=== PATIENT | female | born 1965 ===

== ENCOUNTER 2016-08-24 15:39 | Inpatient (IN) | payer BC ==
--- NOTE | 2016-08-24 17:06 | ED PDOC ---
Lower Extremity Pain/Injury Time Seen by Provider: 08/24/16 16:04 Chief Complaint (Nursing): Lower Extremity Problem/Injury Chief Complaint (Provider): Fall Type Injury History Per: Patient History/Exam Limitations: no limitations Current Symptoms Are (Timing): Still Present Additional Complaint(s): Star Díaz, a 51 year old female, presents to the ED complaining of back pain and foot pain. The patient states that she was at home packing away dishes in the top shelf when she slipped and fell on her buttocks. She states that she took advil for the pain and that offered her mild relief. Denies dizziness, chest pain. Past Medical History Reviewed: Historical Data, Nursing Documentation, Vital Signs Vital Signs: Last Vital Signs Temp 98.6 F 08/24/16 15:55 Pulse 66 08/24/16 15:55 Resp 18 08/24/16 15:55 BP 149/82 08/24/16 15:55 Pulse Ox 100 08/24/16 15:55 - Medical History PMH: Back Problems - Surgical History Surgical History: No Surg Hx - Family History Family History: States: Unknown Family Hx - Immunization History Hx Tetanus Toxoid Vaccination: No Hx Influenza Vaccination: No Hx Pneumococcal Vaccination: No - Home Medications Home Medications: Ambulatory Orders Medication Instructions Recorded Ciprofloxacin/Ciprofloxa HCl 500 mg PO BID #14 tab 03/10/15 [Ciprofloxacin] Cyclobenzaprine [Flexeril] 5 mg PO Q8H #20 tab 03/10/15 Nabumetone [Relafen] 500 mg PO BID #20 tab 03/10/15 - Allergies Allergies/Adverse Reactions: Allergies Allergy/AdvReac Type Severity Reaction Status Date / Time No Known Allergies Allergy Verified 03/10/15 12:11 Review of Systems Cardiovascular: Negative for: Chest Pain Musculoskeletal: Positive for: Back Pain, Foot Pain Neurological: Negative for: Dizziness Physical Exam - Reviewed Nursing Documentation Reviewed: Yes Vital Signs Reviewed: Yes - Physical Exam Appears: Positive for: Non-toxic, No Acute Distress Head Exam: Positive for: ATRAUMATIC, NORMAL INSPECTION, NORMOCEPHALIC Skin: Positive for: Normal Color, Warm, Dry Eye Exam: Positive for: Normal appearance, EOMI, PERRL ENT: Positive for: Normal ENT Inspection Neck: Positive for: Normal, Painless ROM, Supple Cardiovascular/Chest: Positive for: Regular Rate, Rhythm, Chest Non Tender. Negative for: Tachycardia Respiratory: Positive for: Normal Breath Sounds. Negative for: Wheezing, Respiratory Distress Gastrointestinal/Abdominal: Positive for: Normal Exam, Bowel Sounds, Soft. Negative for: Tenderness Back: Positive for: Normal Inspection Extremity: Positive for: Normal ROM, Tenderness (Tenderness to mid foot). Negative for: Pedal Edema, Deformity, Swelling Neurologic/Psych: Positive for: Alert, Oriented, Gait - Laboratory Results Result Diagrams: 08/24/16 19:40 08/24/16 19:40 - ECG O2 Sat by Pulse Oximetry: 100 (RA) Pulse Ox Interpretation: Normal Medical Decision Making Medical Decision Makin Initial Impression: 51 year old female presenting with back and foot pain Initial Plan: * Ultram 50mg PO * RAD LS Spine AP/LAT * Reevaluation 1805 - Podiatry paged. Foot: (+) 5th metatarsal fx LS: No acute fracture, height and space maintained. Podiatry consult completed. PT to OR approx 9pm. Discussed admission with Dr. Herring. PT will be evaluated for surgery by anesthesiology. Scribe Attestation Documented by Kathy Mireles acting as a scribe for Lay Graf PA-C. Scribe Attestation All medical record entries made by the Scribe were at my direction and personally dictated by me. I have reviewed the chart and agree that the record accurately reflects my personal performance of the history, physical exam, medical decision making, and the department course for this patient. I have also personally directed, reviewed, and agree with the discharge instructions and disposition. Disposition - Clinical Impression Clinical Impression: Fracture of 5th metatarsal, Fall, Back pain - Patient ED Disposition Is Patient to be Admitted: No - Disposition Disposition Time: 19:40 Condition: STABLE
--- NOTE | 2016-08-24 18:18 | RAD ---
PROCEDURE: Left Foot Radiographs. HISTORY: mi foot pain, s/p fall COMPARISON: None. FINDINGS: BONES: Obliques fracture distal aspect left 5th metatarsal. The fracture does not extend to the articular surface. Anatomic alignment of major fracture fragments. JOINTS: Normal. SOFT TISSUES: Soft tissue swelling attests to the acuity of the fracture. OTHER FINDINGS: None. IMPRESSION: Acute fracture distal left 5th metatarsal.
--- NOTE | 2016-08-24 18:21 | RAD ---
PROCEDURE: Radiographs of the Lumbar Spine. HISTORY: back pain s/p fall COMPARISON: No prior. FINDINGS: BONES: Normal alignment. No listhesis. No fracture. DISC SPACES: Unremarkable. OTHER FINDINGS: None. IMPRESSION: No acute findings related to/accounting for the clinical presentation.
--- NOTE | 2016-08-24 19:28 | CP.PCM.CON ---
History of Present Illness - History of Present Illness History of Present Illness: 51 y/o female with no PMHx presents to ED for left foot pain. Pt states that she was trying to get something from the top shelf at home and fell down. Pt states that injury occured sometimes in the afternoon. Pt informs that she has a lot of pain in her left foot since then. Pt states that she has not had anything to eat or drink since 12 pm this afternoon. Pt denies of any recent F/N /V/C/SOB today. PMHx: denies PSHx: Panniculectomy Abdominoplasty SHx: denies of smoking, EtOH use and illicit drug usage Allergies: N.K.D.A Review of Systems - Constitutional Constitutional: As Per HPI Past Patient History - Past Social History Smoking Status: Never Smoked - PSYCHIATRIC Hx Substance Use: Yes - ANESTHESIA Hx Anesthesia: Yes Hx Anesthesia Reactions: No Meds Allergies/Adverse Reactions: Allergies Allergy/AdvReac Type Severity Reaction Status Date / Time No Known Allergies Allergy Verified 03/10/15 12:11 Physical Exam - Constitutional Appears: Well, Non-toxic, No Acute Distress - Extremities Exam Additional comments: VASC: DP/PT pulses are palpable 2/4 b/l, CORPORATE COMMUNICATIONS ASSOCIATE: < 3 sec to all digits, TG: warm to cool from proximal to distal, no pitting or non-pitting edema noted DERM: No inter-digital maceration, mild erythema noted on the dorsum of the left foot, no open lesions, no clinical suspicion of infection noted NEURO: Protective sensation grossly intact ORTHO: Pain on active ROM in all 4 compartments on left foot, MMT on left foot: 4/5 on dorsiflexion, plantarflexion, and inversion. 2/5 on eversion secondary to patient guarding on the side - Neurological Exam Neurological exam: Alert, Oriented x3 - Psychiatric Exam Psychiatric exam: Normal Affect, Normal Mood Results - Vital Signs Recent Vital Signs: Last Vital Signs Temp 98.6 F 08/24/16 15:55 Pulse 66 08/24/16 15:55 Resp 18 08/24/16 15:55 BP 149/82 08/24/16 15:55 Pulse Ox 100 08/24/16 18:05 Assessment & Plan - Assessment and Plan (Free Text) Assessment: 51 y/o female seen at bedside in ED for displaced oblique 5th metatarsal shaft fracture on the left foot Plan: Pt evaluated and chart reviewed Pt discussed in details with attending Dr. Bland Labs and vitals reviewed (afebrile) x-rays of the left foot taken/reviewed: -oblique radiolucency noted at midshaft level of the 5th metatarsal with mild displacement indicating a fracture Pt placed in barboza compression dressing on the left foot Pt to remain NWB on the left foot Pt educated of the possible treatment options: Pt agreed to have surgery Risks and benefits of procedure discussed with patient patient demonstrates verbal understanding NPO status confirmed by patient CXR, EKG, PT/INR, PTT, CBC, BMP ordered Pt to go to OR tonight for ORIF of left 5th metatarsal fracture Medical clearance to be obtained from on-call anesthesiologist Dr. Mauro Pt educated to stay overnight at the hospital for observation post-op Podiatry to follow this patient while in-house Thank you for the podiatry consult - Date & Time Date: 08/24/16 Time: 19:42
[2016-08-24] MEDS ORDERED: Lidocaine 1% Inj (20ml) IJ ONE ×2 (19:44→22:00)
[2016-08-24] MEDS ORDERED: ceFAZolin 1 GM in Sodium Chloride 0.9% 100 ML IVPB ONE (19:44)
[2016-08-24] MEDS ORDERED: Bupivacaine 0.5% 50 ML IJ ONE (19:44)
[2016-08-24] MEDS ORDERED: Sodium Chloride 0.9% 1,000 ML IV SCH ×2 (19:45→23:45)
[2016-08-24 19:50] LABS: HEMOGLOBIN 11.7 g/dL (12.0-16.0); MEAN CELL VOLUME 94.4 fl (81.0-99.0); MEAN CORPUSCULAR HGB CONC 32.9 g/dL (33.0-37.0); RBC 3.78 Mil/uL (3.80-5.20); RED CELL DISTRIBUTION WIDTH 13.2 % (11.5-14.5); WHITE BLOOD COUNT 5.4 K/uL (4.8-10.8)
[2016-08-24 20:08] LABS: ALB/GLOB RATIO 1.3 (1.0-2.1); ALBUMIN 4.3 g/dL (3.5-5.0); ALT/SGPT 33 U/L (9-52); AST/SGOT 29 U/L (14-36); BLOOD UREA NITROGEN 15 mg/dl (7-17); GFR AFRICAN-AMERICAN > 60; GFR NON-AFRICAN AMERICAN > 60
[2016-08-24 20:15] LABS: PARTIAL THROMBOPLASTIN TIME 29.8 Seconds (25.6-37.1); PROTHROMBIN TIME 11.1 Seconds (9.8-13.1)
[2016-08-24] MEDS ORDERED: Propofol 10 mg/ml Inj (20 ML) ONE ×3 (21:41→22:37)
[2016-08-24] MEDS ORDERED: Lidocaine Hydrochloride 5 ML INJ ONE (21:41)
[2016-08-24] MEDS ORDERED: Midazolam 2 MG/2 ML VIAL ONE (21:41)
[2016-08-24] MEDS ORDERED: Bupivacaine 0.5% Inj(30mL) ONE (21:50)
[2016-08-24] MEDS ORDERED: Sodium Chloride 0.9% 1,000 ML IV ONE (21:54)
[2016-08-24] MEDS ORDERED: Bupivacaine 0.5% Inj(30mL) IJ ONE (22:00)
[2016-08-24] MEDS ORDERED: Oxycodone/Acetaminophen 5/325 mg Tab PO PRN ×2 (22:24)
[2016-08-24] MEDS ORDERED: Liquid Adhesive TOP ONE (23:06)
[2016-08-24] MEDS ORDERED: HYDROmorphone 0.5 mg/0.5 ml ISec IVP PRN (23:33)
--- NOTE | 2016-08-24 23:33 | PCM.SURG1 ---
Surgeon's Initial Post Op Note - Surgeon's Notes Surgeon: Dr. Bland Batch Freezer: Dr. Moy PGY3, Dr. Dc PGY3, Dr. Collado PGY1 Type of Anesthesia: IV Sedation Pre-Operative Diagnosis: Left foot 5th metatarsal fracture Operative Findings: See operative note. materials: 2.0 screws = 8mm x2, 10mm x2 , 12mm; 247.612 plate, 3-0 vicryl, 4-0 vicryl, 5-0 prolene Post-Operative Diagnosis: Same Operation Performed: Left foot 5th metatarsal fracture ORIF Specimen/Specimens Removed: none Estimated Blood Loss: EBL {In ML}: 2 Blood Products Given: N/A Drains Used: No Drains Post-Op Condition: Good Date of Surgery/Procedure: 08/24/16 Time of Surgery/Procedure: 22:00
--- NOTE | 2016-08-24 23:43 | CP.PCM.HP ---
Past Patient History - Past Medical History & Family History Past Medical History?: Yes - Past Social History Smoking Status: Never Smoked - MUSCULOSKELETAL/RHEUMATOLOGICAL Hx Back Pain: Yes - PSYCHIATRIC Hx Substance Use: Yes - ANESTHESIA Hx Anesthesia: Yes Hx Anesthesia Reactions: No Meds Allergies/Adverse Reactions: Allergies Allergy/AdvReac Type Severity Reaction Status Date / Time No Known Allergies Allergy Verified 03/10/15 12:11 Results - Vital Signs Recent Vital Signs: Last Vital Signs Temp 98.6 F 08/24/16 15:55 Pulse 66 08/24/16 15:55 Resp 18 08/24/16 15:55 BP 149/82 08/24/16 15:55 Pulse Ox 100 08/24/16 21:35 - Labs Result Diagrams: 08/24/16 19:40 08/24/16 19:40 Labs: Laboratory Results - last 24 hr 08/24/16 08/24/16 08/24/16 19:40 19:40 19:40 WBC 5.4 RBC 3.78 L Hgb 11.7 L Hct 35.7 MCV 94.4 MCH 31.0 MCHC 32.9 L RDW 13.2 Plt Count 252 PT 11.1 INR 1.0 APTT 29.8 Sodium 140 Potassium 3.9 Chloride 105 Carbon Dioxide 25 Anion Gap 13 BUN 15 Creatinine 0.9 Est GFR ( Amer) > 60 Est GFR (Non-Af Amer) > 60 Random Glucose 103 Calcium 12.0 H Total Bilirubin 0.3 AST 29 ALT 33 Alkaline Phosphatase 53 Total Protein 7.7 Albumin 4.3 Globulin 3.4 Albumin/Globulin Ratio 1.3
[2016-08-25 01:54] VITALS: RESP 20
[2016-08-25 02:31] LABS: IRON 40 ug/dL (37-170)
[2016-08-25 02:41] LABS: % IRON SATURATION 12 % (20-55); TOTAL IRON BINDING CAPACITY 336 ug/dL (250-450)
[2016-08-25 07:45] VITALS: BP 151/87; PULSE 67; TEMP 97.7; O2SAT 96
--- NOTE | 2016-08-25 08:59 | CARD ---
APPROVED REPORT EKG Measurement Heart [id number] PA [id number] <Conclusion> Sinus bradycardia Otherwise normal ECG
--- NOTE | 2016-08-25 10:58 | RAD ---
HISTORY: admission/OR COMPARISON: No prior. TECHNIQUE: Chest PA and lateral FINDINGS: LUNGS: The lungs are well inflated and clear. PLEURA: No significant pleural effusion identified. No pneumothorax apparent. CARDIOVASCULAR: Normal. OSSEOUS STRUCTURES: No significant abnormalities. VISUALIZED UPPER ABDOMEN: Normal. OTHER FINDINGS: None. IMPRESSION: No active pulmonary disease.
[2016-08-25 11:00] LABS: FERRITIN 18.4 ng/mL
[2016-08-25 11:19] LABS: BASO % 0.4 % (0.0-2.0); EOS % 0.6 % (0.0-4.0); LYMPH # 1.4 K/uL (1.0-4.3); LYMPH % 22.4 % (20.0-40.0); MEAN CELL VOLUME 93.7 fl (81.0-99.0); MEAN CORPUSCULAR HEMOGLOBIN 31.4 pg (27.0-31.0); MEAN CORPUSCULAR HGB CONC 33.6 g/dL (33.0-37.0); MEAN PLATELET VOLUME 8.5 fl (7.2-11.7); MONO # 0.4 K/uL (0.0-0.8); MONO % 6.6 % (0.0-10.0); NEUT # 4.3 K/uL (1.8-7.0); RBC 3.51 Mil/uL (3.80-5.20); RED CELL DISTRIBUTION WIDTH 12.9 % (11.5-14.5); WHITE BLOOD COUNT 6.1 K/uL (4.8-10.8)
--- NOTE | 2016-08-25 11:20 | CP.PCM.PN ---
Subjective - Date & Time of Evaluation Date of Evaluation: 08/25/16 Time of Evaluation: 11:15 - Subjective Subjective: 51 y/o female with seen at bedside with attending Dr. Bland 1 day s/p left 5th metatarsal shaft fracture. Pt is AAOx3 and is in NAD. Pt denies of any acute overnight events. Pt states that she has little pain today but she is managing it well. Pt denies of any recent F/N/V/C/SOB today. Pt denies of any other pedal complains as of now. Objective - Vital Signs/Intake and Output Vital Signs (last 24 hours): Temp Pulse Resp BP Pulse Ox 97.7 F 67 20 151/87 H 96 08/25/16 07:44 08/25/16 07:44 08/25/16 07:44 08/25/16 07:44 08/25/16 07:44 Intake and Output: 08/25/16 08/25/16 06:59 18:59 Intake Total 600 Balance 600 - Medications Medications: Current Medications Acetaminophen (Tylenol 325mg Tab) 650 mg PO Q4 PRN PRN Reason: Pain, Mild (1-3) Sodium Chloride (Sodium Chloride 0.9%) 1,000 mls @ 110 mls/hr IV .Q9H6M MARY Stop: 08/25/16 19:46 Last Admin: 08/24/16 20:18 Dose: 110 mls/hr Sodium Chloride (Sodium Chloride 0.9%) 1,000 mls @ 100 mls/hr IV .Q10H MARY Oxycodone/Acetaminophen (Percocet 5/325 Mg Tab) 1 tab PO Q4 PRN PRN Reason: Pain, moderate (4-7) Stop: 08/27/16 22:25 Last Admin: 08/25/16 05:04 Dose: 1 tab Oxycodone/Acetaminophen (Percocet 5/325 Mg Tab) 2 tab PO Q4 PRN PRN Reason: Pain, severe (8-10) Stop: 08/27/16 22:25 Last Admin: 08/25/16 08:15 Dose: 2 tab - Labs Labs: 08/24/16 19:40 08/24/16 19:40 PT 11.1 Seconds (9.8-13.1) 08/24/16 19:40 INR 1.0 (0.9-1.2) 08/24/16 19:40 APTT 29.8 Seconds (25.6-37.1) 08/24/16 19:40 - Constitutional Appears: Well, Non-toxic, No Acute Distress - Extremities Exam Additional comments: Pt's cast is intact, dry and clean. VASC: FOOD COUNTER ATTENDANT: < 3 sec to all digits ORTHO: active range of motion intact at MTPJ - Neurological Exam Neurological Exam: Alert, Awake, Oriented x3 - Psychiatric Exam Psychiatric exam: Normal Affect, Normal Mood Assessment and Plan - Assessment and Plan (Free Text) Assessment: 51 y/o female seen at bedside 1 day s/p ORIF of displaced oblique 5th metatarsal shaft fracture on the left foot Plan: Pt evaluated and chart reviewed Pt evaluated with attending Dr. Bland Labs, and vitals reviewed: (afebrile) Pt educated to remain NWB to the left lower extremity Pt educated to use crutches at all times Pt given keflex and percocet Pt educated to finish the abx course and take pain meds as needed Pt demonstrated verbal understanding Pt is to follow up in podiatry clinic for post-op check Pt is stable from podiatry standpoint Podiatry to follow patient while in-house
[2016-08-25 11:22] LABS: BLOOD UREA NITROGEN 9 mg/dl (7-17); CALCIUM 8.7 mg/dL (8.4-10.2); GFR AFRICAN-AMERICAN > 60; GFR NON-AFRICAN AMERICAN > 60
--- NOTE | 2016-08-25 11:29 | RAD ---
PROCEDURE: Left Foot Radiographs. HISTORY: s/p left foot surgery COMPARISON: 08/24/2016 FINDINGS: BONES: Crust obscures bony details. Status post open reduction and internal fixation of an acute oblique fracture in the distal metaphysis of the 5th metatarsal. The 3rd screw penetrates beyond the cortex. Bone alignment is near normal. JOINTS: Normal. SOFT TISSUES: Normal. OTHER FINDINGS: None. IMPRESSION: Evaluation limited by overlying cast. Status post open reduction and internal fixation of an acute oblique fracture in the distal metaphysis of the 5th metatarsal. Near normal bone alignment.
[2016-08-25 12:49] LABS: FOLATE 9.3 ng/mL
--- NOTE | 2016-08-26 01:01 | CP.PCM.DIS ---
Provider - Provider Date of Admission: 08/24/16 19:39 Attending physician: Lucia Herring MD Time Spent in preparation of Discharge (in minutes): 30 Diagnosis - Discharge Diagnosis (1) Fracture of 5th metatarsal Status: Acute Priority: High Comment: S/P [facility] Hospital Course - Lab Results Lab Results: Most Recent Lab Values WBC 6.1 K/uL (4.8-10.8) 08/25/16 10:40 RBC 3.51 Mil/uL (3.80-5.20) L 08/25/16 10:40 Hgb 11.0 g/dL (12.0-16.0) L 08/25/16 10:40 Hct 32.9 % (34.0-47.0) L 08/25/16 10:40 MCV 93.7 fl (81.0-99.0) 08/25/16 10:40 MCH 31.4 pg (27.0-31.0) H 08/25/16 10:40 MCHC 33.6 g/dL (33.0-37.0) 08/25/16 10:40 RDW 12.9 % (11.5-14.5) 08/25/16 10:40 Plt Count 218 K/uL (130-400) 08/25/16 10:40 MPV 8.5 fl (7.2-11.7) 08/25/16 10:40 Neut % (Auto) 70.0 % (50.0-75.0) 08/25/16 10:40 Lymph % (Auto) 22.4 % (20.0-40.0) 08/25/16 10:40 [place] % (Auto) 6.6 % (0.0-10.0) 08/25/16 10:40 Eos % (Auto) 0.6 % (0.0-4.0) 08/25/16 10:40 Baso % (Auto) 0.4 % (0.0-2.0) 08/25/16 10:40 Neut # 4.3 K/uL (1.8-7.0) 08/25/16 10:40 Lymph # 1.4 K/uL (1.0-4.3) 08/25/16 10:40 [place] # 0.4 K/uL (0.0-0.8) 08/25/16 10:40 Eos # 0.0 K/uL (0.0-0.7) 08/25/16 10:40 Baso # 0.0 K/uL (0.0-0.2) 08/25/16 10:40 Retic Count 1.8 % (0.5-1.5) H 08/25/16 02:00 PT 11.1 Seconds (9.8-13.1) 08/24/16 19:40 INR 1.0 (0.9-1.2) 08/24/16 19:40 APTT 29.8 Seconds (25.6-37.1) 08/24/16 19:40 Sodium 140 mmol/l (132-148) 08/25/16 10:45 Potassium 3.9 MMOL/L (3.6-5.0) 08/25/16 10:45 Chloride 106 mmol/L (98-107) 08/25/16 10:45 Carbon Dioxide 25 mmol/L (22-30) 08/25/16 10:45 Anion Gap 13 (10-20) 08/25/16 10:45 BUN 9 mg/dl (7-17) 08/25/16 10:45 Creatinine 0.8 mg/dL (0.7-1.2) 08/25/16 10:45 Est GFR ( Amer) > 60 08/25/16 10:45 Est GFR (Non-Af Amer) > 60 08/25/16 10:45 Random Glucose 119 mg/dL (65-105) H 08/25/16 10:45 Calcium 8.7 mg/dL (8.4-10.2) 08/25/16 10:45 Iron 40 ug/dL (37-170) 08/25/16 02:00 TIBC 336 ug/dL (250-450) 08/25/16 02:00 % Saturation 12 % (20-55) L 08/25/16 02:00 Ferritin 18.4 ng/mL 08/25/16 02:00 Total Bilirubin 0.3 mg/dl (0.2-1.3) 08/24/16 19:40 AST 29 U/L (14-36) 08/24/16 19:40 ALT 33 U/L (9-52) 08/24/16 19:40 Alkaline Phosphatase 53 U/L (38-126) 08/24/16 19:40 Total Protein 7.7 G/DL (6.3-8.2) 08/24/16 19:40 Albumin 4.3 g/dL (3.5-5.0) 08/24/16 19:40 Globulin 3.4 gm/dL (2.2-3.9) 08/24/16 19:40 Albumin/Globulin Ratio 1.3 (1.0-2.1) 08/24/16 19:40 CA 125 Antigen < 5.5 U/mL (0-35) 08/25/16 02:00 Vitamin B12 532 pg/mL (239-931) 08/25/16 02:00 Folate 9.3 ng/mL 08/25/16 02:00 Free T4 0.83 ng/dL (0.78-2.19) 08/25/16 11:04 TSH 3rd Generation 15.30 mIU/ML (0.46-4.68) H 08/25/16 02:00 - Hospital Course Hospital Course: A51yo admitted for %th Metatarsal Proximal phalanx S/P ORIF. Incidental finding include Hypercalcemia and Hypothyroidism, and started on Synthroid 50mcg daily Discharge Exam - Head Exam Head Exam: ATRAUMATIC, NORMAL INSPECTION, NORMOCEPHALIC - Eye Exam Eye Exam: EOMI, Normal appearance, PERRL Pupil Exam: NORMAL ACCOMODATION, PERRL - Neck Exam Neck exam: Normal Inspection - GI/Abdominal Exam GI & Abdominal Exam: Normal Bowel Sounds - Rectal Exam Rectal Exam: NORMAL INSPECTION - Exam Exam: Circumcision, NORMAL INSPECTION External exam: NORMAL EXTERNAL EXAM Speculum exam: NORMAL SPECULUM EXAM Bimanual exam: NORMAL BIMANUAL EXAM - Neurological Exam Neurological exam: Alert, CN II-XII Intact, Normal Gait, Oriented x3, Reflexes Normal - Psychiatric Exam Psychiatric exam: Normal Affect, Normal Mood - Skin Skin Exam: Dry, Intact, Normal Color, Warm Discharge Plan - Discharge Medications Prescriptions: Ferrous Sulfate [Feosol] 324 mg PO BID #60 ect oxyCODONE/Acetaminophen [Percocet 5/325 mg Tab] 1 tab PO Q4 PRN #20 tab PRN Reason: Pain, Moderate (4-7) Levothyroxine [Synthroid] 50 mcg PO DAILY #30 tab - Follow Up Plan Condition: STABLE Disposition: HOME/ ROUTINE Instructions: Foot Fracture in Adults (DC), ORIF (DC), Back Pain (GEN) Additional Instructions: patient cleared for discharge to Home today by / Rx for meds provided s/p PT, tolerated well pt. has f/u appointment with on 09/06 f/u with Podiatry in 1 week Referrals: Lucia Herring MD [Staff Provider] - Azael Bland DPM [Staff Provider] -
[2016-08-28 16:52] LABS: THYROGLOBULIN 6.9 ng/mL (2.8-40.9)
--- NOTE | 2016-08-29 06:29 | OP ---
PROCEDURE DATE: 08/24/2016 PREOPERATIVE DIAGNOSIS: Left foot fifth metatarsal fracture. POSTOPERATIVE DIAGNOSIS: Left foot fifth metatarsal fracture. PROCEDURE: Open reduction and internal fixation of left foot with metatarsal fracture. SURGEON: Dr. Azael Bland. VICE PRESIDENT BUSINESS DEVELOPMENT: Dr. Edd Moy, Dr. Papa Dc, and Dr. Rita Collado. TYPE OF ANESTHESIA: IV sedation and local injection. INDICATIONS: This patient is a 51-year-old female with the above-mentioned diagnosis, apparently suffered a traumatic injury earlier this evening to the left foot resulting in a fifth metatarsal fracture confirmed by diagnostic imaging. The patient seeks surgical intervention at this time. All alternatives, benefits, and complications of this surgical procedure were explained to the patient at length. The patient verbalized understanding and wished to proceed. All questions were addressed and answered. No guarantees were given or implied. Consent was signed and preop staff was confirmed prior to bringing the patient to the operating room. OPERATIVE PROCEDURE: Patient was brought into the operating room and placed on the operating room table in the supine position. Pneumatic ankle tourniquet was applied to the supramalleolar region of the left ankle. After induction of IV sedation, had local injection consistent of 20 mL of 1:1 mixture of 0.5% Marcaine plain and 1% lidocaine plain was administered in a local block fashion in the left foot. After local anesthesia was achieved, foot was then prepped and draped in a normal sterile manner and the procedure began. Attention was directed to the dorsal lateral aspect of the left foot fifth metatarsal where a linear longitudinal incision was made with 15 blade. The incision was deepened to the superficial and subcutaneous tissue utilizing sharp and blunt dissection. Care was taken to retract all vital neurovascular and tying the structures throughout the duration of the procedure. All superficial bleeding sites were cauterized utilizing electrocautery. The dissection was then carried down to the periosteal layer where the fracture site could be visualized at this time. A 15 blade was utilized to make a linear incision through the periosteum of the distal fifth metatarsal. A 15 blade, freer elevator, and pick-ups were then utilized to free the periosteal tissue from the fracture site and distal fifth metatarsal shaft. It should be noted at this time that the fracture in itself was comminuted with multiple spiral fragments. Allis clamp was then utilized to reduce the fracture and temporarily stabilized the fracture site. Intraoperative fluoroscopy was utilized to confirm adequate reduction of the fracture. Next, a Synthes 2.0 mm screw was inserted across the fracture site utilizing standard AO technique to serve as an interfragmentary compression screw. Intraoperative fluoroscopy was then again utilized to confirm appropriate placement of the screw. Next, a 6-hole plate from the 2.0 mm Synthes hand modular set was cut and trimmed into a 5 hole plate. A 5 hole plate was then positioned on the dorsal lateral aspect of the fifth metatarsal spanning the fracture site. Intraoperative fluoroscopy was then again utilized to confirm appropriate positioning of the plate. The plate was then secured to the fifth metatarsal utilizing four 2.0 mm Synthes fully threaded cortical screws. All screws were inserted utilizing standard AO technique. Intraoperative fluoroscopy was utilized to confirm appropriate positioning and bicortical placement of all screws. Intraoperative fluoroscopy was then again utilized and it was confirmed that the fracture site had been adequately reduced with the appropriate fixation across the fracture site. Surgical area was then flushed with copious amounts of sterile normal saline. The periosteal layers were reapproximated utilizing 3-0 Vicryl suture. Subcutaneous tissues were reapproximated utilizing 4-0 Vicryl suture. The skin was reapproximated utilizing 5-0 chromic suture in a running subcuticular fashion. Postoperative bandages consisted of Betadine, Adaptic, TFD, Otilio, and a below-knee fiberglass cast. POSTOP CONDITION: The patient tolerated the procedure and anesthesia well. No apparent complications or complaints. The patient is thus carried from the OR to the recovery room with vital signs stable and neurovascular status intact. The patient will follow up with Dr. Blankenship on an outpatient basis. Edd Moy DPM NOAH
== END 2016-08-25 13:40 | disposition home or self-care (01) | DRG 505 ==
LOC: H.ER 15:39 → H.ERHOLD 19:39 → H.MEDSURG1 08-25 01:12
PROVIDERS: ADMIT Internal Medicine; ATTEND Internal Medicine
PROC: 0QSP04Z Reposition Left Metatarsal with Internal Fixation Device, Open Approach (ICD-10-PCS; principal; 2016-08-24 21:00)
PROC: F07Z9FZ Gait Training/Functional Ambulation Treatment using Assistive, Adaptive, Supportive or Protective Equipment (ICD-10-PCS; 2016-08-25)
DX: S92.352A Displaced fracture of fifth metatarsal bone, left foot, initial encounter for closed fracture (principal); E83.52 Hypercalcemia; E03.9 Hypothyroidism, unspecified; W01.0XXA Fall on same level from slipping, tripping and stumbling without subsequent striking against object, initial encounter; Y93.89 Activity, other specified; Y92.000 Kitchen of unspecified non-institutional (private) residence as the place of occurrence of the external cause; Z79.1 Long term (current) use of non-steroidal anti-inflammatories (NSAID)

== ENCOUNTER 2016-09-08 16:06 | Emergency (ER) | payer BC ==
[2016-09-08 16:15] VITALS: BP 146/87; PULSE 62; RESP 14; TEMP 98.3; O2SAT 100
--- NOTE | 2016-09-08 16:31 | ED PDOC ---
Lower Extremity Pain/Injury Time Seen by Provider: 09/08/16 16:20 Chief Complaint (Nursing): Lower Extremity Problem/Injury Chief Complaint (Provider): Drainage from leg wound History Per: Patient History/Exam Limitations: no limitations Onset/Duration Of Symptoms: Days (x 1) Current Symptoms Are (Timing): Still Present Additional Complaint(s): Star is a 51-year-old female with a past medical history of metatarsal fracture and surgery on 08/24/2016, who presents to the ED for complaints of discharge coming from cast and plantar surface where wound is located. Denies any associated chills or fever. Patient had a follow up appointment with surgeon on 09/06/16 without any issues at that time. PMD: Lucia Herring Past Medical History Reviewed: Historical Data, Nursing Documentation, Vital Signs Vital Signs: Last Vital Signs Temp 98.3 F 09/08/16 16:10 Pulse 62 09/08/16 16:10 Resp 14 09/08/16 16:10 BP 146/87 09/08/16 16:10 Pulse Ox 100 09/08/16 16:10 - Medical History PMH: Back Problems Other PMH: Foot fracture - Surgical History Other surgeries: Surgery for metatarsal fracture - Family History Family History: States: Unknown Family Hx - Immunization History Hx Tetanus Toxoid Vaccination: No Hx Influenza Vaccination: No Hx Pneumococcal Vaccination: No - Home Medications Home Medications: Ambulatory Orders Medication Instructions Recorded Ferrous Sulfate [Feosol] 324 mg PO BID #60 ect 08/25/16 Levothyroxine [Synthroid] 50 mcg PO DAILY #30 tab 08/25/16 oxyCODONE/Acetaminophen [Percocet 1 tab PO Q4 PRN #20 tab 08/25/16 5/325 mg Tab] - Allergies Allergies/Adverse Reactions: Allergies Allergy/AdvReac Type Severity Reaction Status Date / Time No Known Allergies Allergy Verified 09/08/16 16:09 Review of Systems ROS Statement: Except As Marked, All Systems Reviewed And Found Negative Constitutional: Negative for: Fever, Chills Musculoskeletal: Positive for: Other (Drainage from cast and plantar surface, where surgical wound is) Physical Exam - Reviewed Nursing Documentation Reviewed: Yes Vital Signs Reviewed: Yes - Physical Exam Appears: Positive for: Non-toxic, No Acute Distress Head Exam: Positive for: ATRAUMATIC, NORMAL INSPECTION, NORMOCEPHALIC Skin: Positive for: Normal Color (Dry skin noted between spaces in cast), Warm, Dry Eye Exam: Positive for: EOMI, Normal appearance, PERRL Neck: Positive for: Normal, Painless ROM, Supple Cardiovascular/Chest: Positive for: Regular Rate, Rhythm. Negative for: Murmur Respiratory: Positive for: Normal Breath Sounds. Negative for: Accessory Muscle Use, Respiratory Distress Extremity: Positive for: Capillary Refill (< 2 sec), Deformity (Foot in cast). Negative for: Other (Erythema) Neurologic/Psych: Positive for: Alert, Oriented. Negative for: Motor/Sensory Deficits - ECG O2 Sat by Pulse Oximetry: 100 (RA) Pulse Ox Interpretation: Normal - Progress ED Course And Treament: SEEN BY PODIATRY RESIDENT. CAST REMOVED. BETADIENE NOTED. PATIENT HAD MISTAKEN BETADIENE DRIPPING FROM CAST DISCHARGE. PATIENT EDUCATED REGARDING SIGNS OF INFECTION TOLD TO F/U NEXT WEEK IN PODIATRY CLINIC. Medical Decision Making Medical Decision Making: Time: 16:23 Initial Impression: Drainage from surgical wound Initial Plan: --Discussed case with Podiatry Time: 17:00 --Podiatry will remove cast and evaluate patient's wound Scribe Attestation: Documented by Rere Maldonado, acting as a scribe for Ladonna Dc PA-C Provider Scribe Attestation: All medical record entries made by the Scribe were at my direction and personally dictated by me. I have reviewed the chart and agree that the record accurately reflects my personal performance of the history, physical exam, medical decision making, and the department course for this patient. I have also personally directed, reviewed, and agree with the discharge instructions and disposition. Disposition - Clinical Impression Clinical Impression: Visit for wound check - Patient ED Disposition Is Patient to be Admitted: No - Disposition Referrals: Podiatry Clinic [Outside] Disposition: Routine/Home Disposition Time: 17:21 Condition: FAIR Additional Instructions: ALEXSANDRA [facility] 1 O 2 SEMANAS Instructions: Cast Care (ED) Forms: [facility] (Luxembourgish) Print Language: GREENLANDIC
--- NOTE | 2016-09-08 19:10 | CP.PCM.CON ---
History of Present Illness - History of Present Illness History of Present Illness: 51 year old female patient seen at in ED holding at the request of a podiatry consult. Patient sustained a metatarsal fx on and had surgery for injury on 08/[address] Bland. Patient states she has been following up with Dr. Bland in clinic and was told there were no issues at the time. Patient had her most recent visit on 09/06/16 and was told there were no issues. Patient is concerned it may be infected due to a "yellow discoloration and yellow drainage " to her L foot. Patient admits that she was touching the inside of her dressing when she knew she was not supposed to. Patient denies N/V/F/D/C/SOB/ calf pain. No other pedal complaints at this time. PMHx: denies PSHx: Panniculectomy Abdominoplasty SHx: denies of smoking, EtOH use and illicit drug usage Allergies: N.K.D.A Review of Systems - Review of Systems All systems: reviewed and no additional remarkable complaints except (as per HPI ) Past Patient History - Past Medical History & Family History Past Medical History?: Yes - Past Social History Smoking Status: Never Smoked - MUSCULOSKELETAL/RHEUMATOLOGICAL Hx Back Pain: Yes - PSYCHIATRIC Hx Substance Use: Yes - ANESTHESIA Hx Anesthesia: Yes Hx Anesthesia Reactions: No Meds Allergies/Adverse Reactions: Allergies Allergy/AdvReac Type Severity Reaction Status Date / Time No Known Allergies Allergy Verified 09/08/16 16:09 Physical Exam - Constitutional Appears: Well, Non-toxic, No Acute Distress - Extremities Exam Additional comments: Patient's cast plantar surface is dirty and appears that it has been walked on. VASC: DP/PT pulses are palpable 2/4 , SPINNER CONTINUOUS: < 3 sec to all digits, TG: warm to cool from proximal to distal, no edema noted to dorsolateral forefoot DERM: Surgical incision noted to dorsal aspect of 5th metatarsal with sutures well-approximated and steri strips overlying incision. Incision is well-coapted with no wound dehiscence noted. Yellow/brown discoloration is noted to 5th digit and incision secondary to painted betadine. No purulence, drainage, malodor, fluctuance, or clinical signs of infection noted. NEURO: Protective sensation grossly intact ORTHO: Tenderness to palpation surgical site. Active ROM noted to all digits. - Neurological Exam Neurological exam: Alert, Oriented x3 - Psychiatric Exam Psychiatric exam: Normal Affect, Normal Mood Results - Vital Signs Recent Vital Signs: Last Vital Signs Temp 98.3 F 09/08/16 16:10 Pulse 62 09/08/16 16:10 Resp 14 09/08/16 16:10 BP 146/87 09/08/16 16:10 Pulse Ox 100 09/08/16 17:22 Assessment & Plan - Assessment and Plan (Free Text) Assessment: 51 year old female seen in ED s/p ORIF displaced oblique 5th metatarsal shaft fracture of left foot (DOS: 08/24/16) Plan: Patient examined and evaluated in ED Discussed with attending, Dr. Bland. Chart and vitals reviewed = afebrile Informed patient that the yellow discoloration is secondary to betadine and not purulence from possible infection Fiberglass cast reapplied to LLE Patient is to follow up in podiatry clinic next week for removal of sutures Stable from podiatry standpoint Thank you for this consult, please reconsult podiatry again as needed
== END 2016-09-08 18:20 | disposition home or self-care (01) ==
LOC: H.ER 16:06
DX: Z48.01 Encounter for change or removal of surgical wound dressing (principal)

== ENCOUNTER 2016-09-24 12:03 | Emergency (ER) | payer BC ==
[2016-09-24 12:22] VITALS: BP 137/71; PULSE 65; RESP 16; TEMP 98; O2SAT 100
--- NOTE | 2016-09-24 13:22 | ED PDOC ---
HPI: Wound Care - HPI Time Seen by Provider: 09/24/16 13:14 Chief Complaint (Nursing): Wound Check Chief Complaint (Provider): Wound check History Per: Patient History Of Present Illness: Star Díaz, a 51 year old female, presents to the ED four wound care. The patient reports that she was seen here a month ago and was told to follow up with Dr. Bland, but did not do so because she was confused as to who she should follow up with. She states that she is now here today because her cast is too tight and she wants it removed. Exam Limitations: no limitations Current Symptoms Are (Timing): Better Past Medical History Reviewed: Historical Data, Nursing Documentation, Vital Signs Vital Signs: Last Vital Signs Temp 98.0 F 09/24/16 12:20 Pulse 65 09/24/16 12:20 Resp 16 09/24/16 12:20 BP 137/71 09/24/16 12:20 Pulse Ox 100 09/24/16 12:20 - Medical History PMH: Back Problems - Family History Family History: States: Unknown Family Hx - Immunization History Hx Tetanus Toxoid Vaccination: No Hx Influenza Vaccination: No Hx Pneumococcal Vaccination: No - Home Medications Home Medications: Ambulatory Orders Medication Instructions Recorded Ferrous Sulfate [Feosol] 324 mg PO BID #60 ect 08/25/16 Levothyroxine [Synthroid] 50 mcg PO DAILY #30 tab 08/25/16 oxyCODONE/Acetaminophen [Percocet 1 tab PO Q4 PRN #20 tab 08/25/16 5/325 mg Tab] - Allergies Allergies/Adverse Reactions: Allergies Allergy/AdvReac Type Severity Reaction Status Date / Time No Known Allergies Allergy Verified 09/08/16 16:09 Review of Systems Musculoskeletal: Positive for: Other (Foot cast too tight). Negative for: Foot Pain Physical Exam - Reviewed Nursing Documentation Reviewed: Yes Vital Signs Reviewed: Yes - Physical Exam Appears: Positive for: Non-toxic, No Acute Distress Cardiovascular/Chest: Positive for: Regular Rate, Rhythm. Negative for: Chest Non Tender, Tachycardia Respiratory: Positive for: Normal Breath Sounds. Negative for: Wheezing, Respiratory Distress Extremity: Positive for: Normal ROM (Full ROM to toes), Other (Toes look normal ; no discoloration to toes.). Negative for: Tenderness, Deformity, Swelling Neurologic/Psych: Positive for: Alert, Oriented - ECG O2 Sat by Pulse Oximetry: 100 (RA) Pulse Ox Interpretation: Normal Medical Decision Making Medical Decision Makin Initial Impression: 51 year old female presenting for wound check [address] contacted who will come and see patient. pt placed in post. splint and advised to remove and place in CAM boot with f.u with podiatry and nonwght bearing. ___ Scribe Attestation Documented by Kathy Mireles acting as a scribe for Sharmaine Kendall PA-C. Scribe Attestation All medical record entries made by the Scribe were at my direction and personally dictated by me. I have reviewed the chart and agree that the record accurately reflects my personal performance of the history, physical exam, medical decision making, and the department course for this patient. I have also personally directed, reviewed, and agree with the discharge instructions and disposition. Disposition - Clinical Impression Clinical Impression: Fracture of 5th metatarsal, Encounter for postoperative wound check - Patient ED Disposition Is Patient to be Admitted: No Counseled Patient/Family Regarding: Studies Performed, Diagnosis, Need For Followup - Disposition Referrals: Podiatry Clinic [Outside] Disposition: Routine/Home Disposition Time: 16:19 Condition: STABLE Instructions: Toe Fracture (ED) Forms: [employer] (Slovak)
--- NOTE | 2016-09-24 16:31 | RAD ---
PROCEDURE: Left Foot Radiographs. HISTORY: foot injury COMPARISON: 08/25/2016 FINDINGS: BONES: No evidence of orthopedic hardware failure. JOINTS: Normal. SOFT TISSUES: Normal. OTHER FINDINGS: None. IMPRESSION: No acute findings related to/accounting for the clinical presentation. No significant interval change compared to the prior examination(s). Limitations of the current study: Detail obscured by overlying fiberglass cast. No preliminary report provided by emergency department personnel.
--- NOTE | 2016-09-24 22:50 | CP.PCM.CON ---
History of Present Illness - History of Present Illness History of Present Illness: Patient is a 51 year old female seen in the ED for f/u 1 month s/p left 5th metatarsal ORIF by Dr. Bland. Patient presents today because of irritation to the cast. She has been wearing the cast for 1 month. She has continued NWB in crutches. Daughter was at bedside. Daughter states there was a miscommunication in which clinic she should follow up with. Mom did not know she had to follow with Dr. Bland in the podiatry clinic for evaluation of her left 5th metatarsal ORIF. She has been following her PCP for her overall health. She reports very mild pain at the surgical site. No other pedal complaints. Denies n/v/sob/cp/chills or f. PMHx: denies PSHx: Panniculectomy Abdominoplasty SHx: denies of smoking, EtOH use and illicit drug usage Allergies: N.K.D.A Past Patient History - Past Medical History & Family History Past Medical History?: Yes - Past Social History Smoking Status: Never Smoked - MUSCULOSKELETAL/RHEUMATOLOGICAL Hx Back Pain: Yes - PSYCHIATRIC Hx Substance Use: Yes - ANESTHESIA Hx Anesthesia: Yes Hx Anesthesia Reactions: No Meds Allergies/Adverse Reactions: Allergies Allergy/AdvReac Type Severity Reaction Status Date / Time No Known Allergies Allergy Verified 09/08/16 16:09 Physical Exam - Constitutional Appears: Well, Non-toxic, No Acute Distress - Extremities Exam Additional comments: VASC: DP/PT pulses are palpable 2/4 , PRESCHOOL DIRECTOR: < 3 sec to all digits, TG: warm to cool from proximal to distal, no edema noted to dorsolateral forefoot DERM: Surgical incision noted to dorsal aspect of 5th metatarsal with sutures well-approximated and steri strips overlying incision. Incision is completely healed;Incision is well-coapted with no wound dehiscence noted. no clinical signs of infection NEURO: Protective sensation grossly intact ORTHO: Very mild tenderness to palpation surgical site. Active ROM noted to all digits. - Neurological Exam Neurological exam: Alert, Oriented x3 - Psychiatric Exam Psychiatric exam: Normal Affect, Normal Mood Results - Vital Signs Recent Vital Signs: Last Vital Signs Temp 98.0 F 09/24/16 12:20 Pulse 65 09/24/16 12:20 Resp 16 09/24/16 12:20 BP 137/71 09/24/16 12:20 Pulse Ox 100 09/24/16 16:21 Assessment & Plan - Assessment and Plan (Free Text) Assessment: 51 year old female seen in ED 1 month s/p ORIF displaced oblique 5th metatarsal shaft fracture of left foot (DOS: 08/24/16) Plan: Patient examined and evaluated in ED Discussed with attending, Dr. Bland. Chart and vitals reviewed = afebrile Sutures removed without incidence. Posterior splint applied, instructed to NWB with crutches until CAM boot Once CAM boot is dispensed, may carefully remove posterior splint and wear CAM boot NWB in crutches Instructed to remain NWB Patient is to follow up in podiatry clinic next week Patient may resume showering, pat dry, don't soak Spoke to daughter as well, [phone], about treatment plans and followup instructed so there is no future miscommunication Stable from podiatry standpoint Thank you for this consult, please reconsult podiatry again as needed
== END 2016-09-24 16:41 | disposition short-term general hospital (02) ==
LOC: H.ER 12:03
DX: Z47.89 Encounter for other orthopedic aftercare (principal)